=== PATIENT | female | born 1955 | race Caucasian/White ===

== ENCOUNTER 2017-03-26 10:12 | Emergency (ER) | payer OTHER ==
[~2017-03-26] VITALS: Ht 154.9 cm; Wt 72.6 kg
[~2017-03-26 10:12] MED LIST: ALPR1TAB2 PO; GABA300C PO; IBUP-974 PO; ZOLP10TA1 PO
[2017-03-26 10:31] VITALS: BP 146/78
--- NOTE | 2017-03-26 12:58 | NUR ---
Patient ambulated to bed 5. RN evaluating patient at bedside.
[2017-03-26] MEDS: TETRACAINE 0.5% OPTH SOL 2 ML BTL OP ONE (13:20)
--- NOTE | 2017-03-26 13:29 | NUR ---
61/F TO ED WITH C/O LEFT EYE PAIN X1 DAY. PT STATES SHE FELL 2 DAYS AGO, DIDNT HIT HEAD AND NO LOC. PT STATES LEFT EYE ITCHES. PAIN 1/10. PT STATES MINOR BLURRINESS IN LEFT EYE. LUNGS CLEAR BILAT. HR EVEN AND REGULAR. AAOX4. VSS. NO SIGNS OF DISTRESS.
[2017-03-26] MEDS: oxyCODONE/APAP 5/325 MG 1 TAB TAB PO ONE (13:40)
[2017-03-26] MEDS: IBUPROFEN 600 MG TAB PO ONE (13:40)
[2017-03-26] MEDS ORDERED: FLUORESCEIN OPTH STRIP 1 MG ONE (14:58)
[2017-03-26 15:13] VITALS: BP 146/78
--- NOTE | 2017-03-26 15:13 | NUR ---
Patient discharged with v/s stable. Written and verbal after care instructions given and explained. Patient alert, oriented and verbalized understanding of instructions. Ambulatory with steady gait. All questions addressed prior to discharge. ID band removed. Patient advised to follow up with PMD. Rx of NAPHCON given. Patient educated on indication of medication including possible reaction and side effects. Opportunity to ask questions provided and answered.
== END 2017-03-26 15:13 | disposition home or self-care (01) ==
LOC: MED 10:12
DX: T78.40XA Allergy, unspecified, initial encounter (principal); B30.9 Viral conjunctivitis, unspecified; R03.0 Elevated blood-pressure reading, without diagnosis of hypertension; Z88.8 Allergy status to other drugs, medicaments and biological substances; X58.XXXA Exposure to other specified factors, initial encounter
CPT/HCPCS: 99284